=== PATIENT | female | born 1970 | race Caucasian/White ===

== ENCOUNTER → 2016-11-29 | Outpatient (CLI) | payer OTHER ==
[~2016-11-29] MED LIST: BUPRTAB51 PO; BUSP30TA2 PO; LORA-741 PO; MOME50SP5 NAE
--- NOTE | 2016-11-30 12:31 | MAMMOGRAPHY REPORT ---
BILATERAL DIGITAL SCREENING MAMMOGRAM TOMOSYNTHESIS WITH CAD: 11/29/2016 CLINICAL HISTORY: Routine screening. Patient has no complaints. TECHNIQUE: Breast tomosynthesis in addition to standard 2D mammography was performed. Current study was also evaluated with a Computer Aided Detection (CAD) system. COMPARISON: Comparison is made to exams dated: 09/09/2014 mammogram, 08/14/2012 mammogram, 08/12/2011 mammogram, 08/04/2010 ultrasound - [facility], 11/17/2008, and 11/17/2008. BREAST COMPOSITION: The tissue of both breasts is heterogeneously dense, which may obscure small ma sses. FINDINGS: There is evidence of prior reduction mammoplasty. There is stable focal asymmetry in the upper outer anterior left breast. Diffuse stable punctate and round microcalcifications. No new sheets spicious mass, architectural distortion or cluster of microcalcifications is seen. IMPRESSION: ACR BI-RADS CATEGORY 1: NEGATIVE There is no mammographic evidence of malignancy. A 1 year screening mammogram is recommended. The p atient will receive written notification of the results. Approximately 10% of breast cancers are not detected with mammography. A negative mammographic repor t should not delay biopsy if a clinically suggestive mass is present. Vilma Wadsworth M.D. ay/:11/29/2016 17:41:14 [employer] Director: Timothy Bautista M, [facility] letter sent: Normal 1/2 BI-RADS Code: ACR BI-RADS Category 1: Negative
== END | disposition home or self-care (01) ==
LOC: C.MAMM 09:24
PROVIDERS: ATTEND Obstetrics & Gynecology
DX: Z12.31 Encounter for screening mammogram for malignant neoplasm of breast (principal)

== ENCOUNTER → 2016-12-09 | Outpatient (CLI) | payer OTHER | END | disposition home or self-care (01) | LOC: C.PAPS 10:45 | PROVIDERS: ATTEND Obstetrics & Gynecology | DX: Z01.419 Encounter for gynecological examination (general) (routine) without abnormal findings (principal) ==

== ENCOUNTER → 2016-12-09 | Outpatient (CLI) | payer OTHER ==
[2016-12-09 09:36] LABS: BASO % 0.4 %; BASO ABS # 0.03 K/uL (0-0.2); COMPLETE YES; EOS % 1.5 %; HEMATOCRIT 41.7 % (37-47); IG% 0.3 %; LYMPH ABS # 2.26 K/uL (1.2-3.4); MEAN CELL VOLUME 86.3 fL (80-100); MEAN CORPUSCULAR HGB CONC 33.6 g/dl (32-36); MEAN PLATELET VOLUME 9.6 fL (7.4-10.4); MONO % 10.6 %; NEUT % 57.2 %; PLATELET COUNT 416 K/uL (130-400); RED BLOOD COUNT 4.83 M/uL (4.2-5.4); WHITE BLOOD COUNT 7.53 K/uL (4.8-10.8)
[2016-12-09 09:49] LABS: BLOOD UREA NITROGEN 13 mg/dl (7-18); BUN/CREATININE RATIO 13.1 (10-20); CALCIUM 8.9 mg/dl (8.5-10.1); CARBON DIOXIDE 30 mmol/L (21-32); CHLORIDE 106 mmol/L (98-107); GLUCOSE 87 mg/dl (70-99); POTASSIUM 3.8 mmol/L (3.5-5.1); SODIUM 140 mmol/L (136-145)
[2016-12-09 09:59] LABS: C-REACTIVE PROTEIN < 0.29 mg/dl (0-0.29); CHOLESTEROL 245 mg/dl (0-200); CHOLESTEROL/HDL RATIO 4.5; HDL CHOLESTEROL 55 mg/dl; LDL CHOLESTEROL CALCULATED 167 mg/dl; TRIGLYCERIDES 115 mg/dl (0-150); VERY LOW DENSITY LIPOPROT CALC 23 mg/dl
[2016-12-09 11:15] LABS: LYME DISEASE AB IGG NEG (NEG)
[2016-12-09 11:19] LABS: LYME DISEASE AB IGM POS (NEG)
[2016-12-13 13:55] LABS: 18KDIGG BAND NONREACTIVE (NONREACTIVE); 23KDIGG BAND REACTIVE (NONREACTIVE); 23KDIGM BAND REACTIVE (NONREACTIVE); 28KDIGG BAND NONREACTIVE (NONREACTIVE); 30KDIGG BAND REACTIVE (NONREACTIVE); 39KDIGG BAND NONREACTIVE (NONREACTIVE); 39KDIGM BAND REACTIVE (NONREACTIVE); 41KDIGG BAND NONREACTIVE (NONREACTIVE); 41KDIGM BAND REACTIVE (NONREACTIVE); 45KDIGG BAND NONREACTIVE (NONREACTIVE); 58KDIGG BAND NONREACTIVE (NONREACTIVE); 66KDIGG BAND NONREACTIVE (NONREACTIVE); 93KDIGG BAND NONREACTIVE (NONREACTIVE)
== END | disposition home or self-care (01) ==
LOC: C.LAB1850 07:16
PROVIDERS: ATTEND Internal Medicine
DX: E78.5 Hyperlipidemia, unspecified (principal); F32.9 Major depressive disorder, single episode, unspecified; M25.50 Pain in unspecified joint

== ENCOUNTER → 2016-12-20 | Outpatient (CLI) | payer OTHER ==
[2016-12-26 02:28] LABS: ANTI-CENTROMERE AB <1.0 NEG AI (<1.0 NEG); ANTI-SS-A <1.0 NEG AI (<1.0 NEG); ANTI-SS-B <1.0 NEG AI (<1.0 NEG); DNA ds CRITHIDIA NEGATIVE (NEGATIVE); MICROSOMAL AB <1 IU/ML (<9); PARVOVIRUS IgG INDEX 0.3 (<0.9); PARVOVIRUS IgM INDEX 0.3 (<0.9); Sm Antibody <1.0 NEG AI (<1.0 NEG)
[2016-12-27 06:43] LABS: ANA TITER 1:40 TITER (<1:40)
== END | disposition home or self-care (01) ==
LOC: C.LAB1850 16:17
PROVIDERS: ATTEND Internal Medicine Infectious Disease
DX: M13.0 Polyarthritis, unspecified (principal)

== ENCOUNTER → 2017-01-19 | Outpatient (CLI) | payer OTHER ==
--- NOTE | 2017-01-19 16:56 | DIAGNOSTIC IMAGING REPORT ---
RIGHT HIP UNILATERAL 2 VIEWS CLINICAL HISTORY: Arthralgia DANLOS SYNDROME TYPE 3. COMPARISON: None FINDINGS: Alignment of the right hip is anatomic. There is no fracture or suspicious lesion. Joint space is preserved. There is no evidence for avascular necrosis. IMPRESSION: Normal right hip radiographs. Electronically signed by: Anshul Berkowitz M.D. 01/19/2017 4:55 PM Dictated Date/Time: 01/19/2017 4:54 PM
--- NOTE | 2017-01-19 16:57 | DIAGNOSTIC IMAGING REPORT ---
RIGHT HAND MIN 3 VIEWS ROUTINE CLINICAL HISTORY: ARTHRALGIA,NAILA DANLOS SYNDROME TYPE 3 COMPARISON: None FINDINGS: Alignment of the right hand is anatomic. There is no fracture or suspicious lesion. Joint spaces are preserved. No erosions are identified. IMPRESSION: No significant abnormality of the right hand. Electronically signed by: Anshul Berkowitz M.D. 01/19/2017 4:56 PM Dictated Date/Time: 01/19/2017 4:55 PM
--- NOTE | 2017-01-19 16:57 | DIAGNOSTIC IMAGING REPORT ---
LEFT HIP UNILATERAL 2 VIEWS CLINICAL HISTORY: Arthralgia DANLOS SYNDROME TYPE 3 COMPARISON: Left hip radiograph May 13, 2013. FINDINGS: Alignment of left hip is anatomic. There is no fracture or suspicious lesion. Joint space is preserved. There is no evidence for avascular necrosis. IMPRESSION: Unremarkable left hip radiographs. Electronically signed by: Anshul Berkowitz M.D. 01/19/2017 4:55 PM Dictated Date/Time: 01/19/2017 4:55 PM
--- NOTE | 2017-01-19 17:00 | DIAGNOSTIC IMAGING REPORT ---
LEFT HAND MIN 3 VIEWS ROUTINE CLINICAL HISTORY: ARTHRALGIA,NAILA DANLOS SYNDROME TYPE 3 COMPARISON: None FINDINGS: Alignment of the left hand is anatomic. There is no fracture or osseous lesion. Joint spaces are preserved and there are no erosions. IMPRESSION: No significant abnormality of the left hand. Electronically signed by: Anshul Berkowitz M.D. 01/19/2017 4:58 PM Dictated Date/Time: 01/19/2017 4:58 PM
== END | disposition home or self-care (01) ==
LOC: C.RAD1850 16:05
PROVIDERS: ATTEND Internal Medicine Rheumatology
DX: M25.50 Pain in unspecified joint (principal); Q79.6 Ehlers-Danlos syndromes

== ENCOUNTER → 2017-12-16 | Outpatient (CLI) | payer OTHER ==
[2017-12-16 10:44] LABS: HEMATOCRIT 43.2 % (37-47); HEMOGLOBIN 14.7 g/dL (12.0-16.0); MEAN CELL VOLUME 86.4 fL (80-100); MEAN CORPUSCULAR HEMOGLOBIN 29.4 pg (25-34); MEAN PLATELET VOLUME 9.4 fL (7.4-10.4); PLATELET COUNT 424 K/uL (130-400); RED CELL DISTRIBUTION WIDTH CV 13.2 % (11.5-14.5); RED CELL DISTRIBUTION WIDTH SD 41.9 fL (36.4-46.3); WHITE BLOOD COUNT 7.65 K/uL (4.8-10.8)
[2017-12-16 10:55] LABS: ALBUMIN 3.8 gm/dl (3.4-5.0); ALT/SGPT 17 U/L (12-78); BLOOD UREA NITROGEN 13 mg/dl (7-18); CALCIUM 8.9 mg/dl (8.5-10.1); CARBON DIOXIDE 26 mmol/L (21-32); CHOLESTEROL 222 mg/dl (0-200); CREATININE 0.99 mg/dl (0.60-1.20); GLUCOSE 101 mg/dl (70-99); POTASSIUM 4.1 mmol/L (3.5-5.1); SODIUM 140 mmol/L (136-145)
[2017-12-16 11:05] LABS: ALKALINE PHOSPHATASE 69 U/L (45-117); AST/SGOT 12 U/L (15-37); LDL CHOLESTEROL CALCULATED 164 mg/dl; TOTAL PROTEIN 7.1 gm/dl (6.4-8.2)
== END | disposition home or self-care (01) ==
LOC: C.LAB1850 08:17
PROVIDERS: ATTEND Internal Medicine
DX: E78.5 Hyperlipidemia, unspecified (principal); Q79.6 Ehlers-Danlos syndromes; M25.50 Pain in unspecified joint

== ENCOUNTER → 2018-01-11 | Outpatient (CLI) | payer OTHER ==
--- NOTE | 2018-01-12 14:20 | MAMMOGRAPHY REPORT ---
BILATERAL DIGITAL SCREENING MAMMOGRAM TOMOSYNTHESIS WITH CAD: 01/11/2018 CLINICAL HISTORY: Routine screening. Patient has no complaints. TECHNIQUE: Breast tomosynthesis in addition to standard 2D mammography was performed. Current study was also evaluated with a Computer Aided Detection (CAD) system. COMPARISON: Comparison is made to exams dated: 11/29/2016 mammogram, 09/09/2014 mammogram, 08/14/2012 mammogram, 08/12/2011 ultrasound, 08/09/2011 mammogram - [facility], and 11/17/2008. BREAST COMPOSITION: The tissue of both breasts is heterogeneously dense, which may obscure small mas ses. FINDINGS: No suspicious masses, calcifications, or areas of architectural distortion are noted in ei ther breast. There has been no significant interval change compared to prior exams. There are stable changes from bilateral reduction mammoplasty, with linear scar markers denoting scars on bilateral a nterior breasts. Bilateral benign-appearing calcifications are not significantly changed. Left late ral breast asymmetry is stable compared to prior exams. IMPRESSION: ACR BI-RADS CATEGORY 2: BENIGN There is no mammographic evidence of malignancy. A 1 year screening mammogram is recommended. The pa tient will receive written notification of the results. Approximately 10% of breast cancers are not detected with mammography. A negative mammographic report should not delay biopsy if a clinically suggestive mass is present. Ann Mccauley M.D. /:01/11/2018 14:56:49 Construction Supervisor/Carpenter: [facility], [facility] letter sent: Normal 1/2 BI-RADS Code: ACR BI-RADS Category 2: Benign
== END | disposition home or self-care (01) ==
LOC: C.MAMM 12:14
PROVIDERS: ATTEND Obstetrics & Gynecology
DX: Z12.31 Encounter for screening mammogram for malignant neoplasm of breast (principal)

== ENCOUNTER 2018-01-25 19:29 | Emergency (ER) | payer OTHER ==
[~2018-01-25] VITALS: Ht 160 cm; Wt 85.0 kg
[2018-01-25 19:38] VITALS: TEMP 36.7; Ht 160 cm; Wt 85.0 kg
[2018-01-25] MEDS ORDERED: NORCO 5/325MG HOME PACK PO ONE (20:15)
--- NOTE | 2018-01-25 20:20 | EMERGENCY ROOM VISIT NOTE ---
History First contact with patient: 19:54 Chief Complaint: EYE ASSESSMENT Stated Complaint: BLOCKED TEAR DUCK LEFT EYE,EXTREME PAIN History of Present Illness The patient is a 47 year old female who presents to the Emergency Room with complaints of left eye pain 2 days. The patient states that she was seen at her director of academic yesterday due to pain in the corner of the eye and diagnosed with a blocked tear duct. She states that she was placed on Augmentin and has taken 1 dose yesterday and 2 doses today. She has been applying a heating pad as well. She has taken ibuprofen and Tylenol and states that she is still having significant pain. She rates her discomfort an 8/10 and states it is throbbing. She is planning to contact her director of academic tomorrow. She has an appointment next month to have a procedure performed on the tear duct. She reports mild blurred vision from tearing of the eye. She denies any new injuries to the eye. She denies any fevers or swelling. Review of Systems A complete 10 point review of systems was reviewed with the patient with pertinent positives and negatives as per history of present illness. All else were negative. Past Medical/Surgical History Medical Problems: (1) Calculus Of Kidney (2) Cholelithiasis Nos (3) Depressive Disorder Nec (4) Other Psoriasis (5) Tobacco Use Disorder Social History Smoking Status: Current Every Day Smoker Alcohol Use: none Marital Status: Occupation Status: employed Current/Historical Medications Scheduled Bupropion (Wellbutrin-Xl), 300 MG PO HS Buspirone Hcl (Buspirone Hcl), 30 MG PO QPM Scheduled PRN Hydrocodone/Acetaminophen 5MG/325MG (Gregory 5MG/325MG), 1-2 TABLET PO Q4H PRN for Pain Lorazepam (Ativan), 0.5 MG PO HS PRN Mometasone Furoate (Nasonex), 1-2 SPRAY ANNE DAILY PRN Physical Exam Vital Signs Date Time Temp Pulse Resp B/P (MAP) Pulse Ox O2 Delivery O2 Flow Rate FiO2 01/25/18 20:45 82 20 148/93 98 Room Air 01/25/18 19:38 36.7 114 20 144/90 98 Room Air Right Eye Acuity: 20/15 Left Eye Acuity: 20/30 Physical Exam VITALS: Vitals are noted on the nurse's note and reviewed by myself. Vital signs stable. GENERAL: This is a 47-year-old female, in no acute distress, nondiaphoretic, well-developed well-nourished. SKIN: The skin was without rashes. EARS: External auditory canals clear, tympanic membranes [place] without erythema or effusion bilaterally. EYES: Pupils equal round and reactive to light and accommodation. There is constant tearing from the left eye. There is minimal swelling and tenderness to the lacrimal gland. There is no facial swelling. EOMs intact. No conjunctival injection noted. NEURO: Patient was alert and oriented to person place and time. Medical Decision & Procedures Medications Administered Medications (Trade) Dose Ordered Sig/Alex Route Start Time Stop Time Status Last Admin Dose Admin Acetaminophen/ Hydrocodone Bitart (Gregory 5/325mg Home Pack) 1 homepack UD ONCE PO 01/25/18 20:15 01/25/18 20:16 DC 01/25/18 20:32 1 HOMEPACK Medical Decision The patient was evaluated as above. She was seen by her director of academic yesterday for these symptoms and placed on antibiotics. The patient comes here because she is having difficulty controlling her pain. She was given a home pack and very short course of Gregory and advised to contact her director of academic first thing in the morning to discuss follow-up. Conservative measures were discussed. She verbalized understanding of my assessment and treatment plan and was discharged home in good condition. [place] Drug Monitoring Program Search Results: patient reviewed within database, no issues identified Medication Reconcilliation Current Medication List: was personally reviewed by me Blood Pressure Screening Patient's blood pressure: Elevated blood pressure Blood pressure disposition: Elevated BP felt to be situational Impression Primary Impression: Nasolacrimal duct obstruction Departure Information Dispostion Home / Self-Care Condition GOOD Prescriptions Hydrocodone/Acetaminophen 5MG/325MG (Gregory 5MG/325MG) Tab 1-2 TABLET PO Q4H Y for Pain, #8 TAB For Initial Treatment Prov: Wanda Gotti ., KERA 01/25/18 Referrals ,Varun Del Real M.D. (PCP) Timothy Juarez M.D. Patient Instructions My [facility] Additional Instructions Continue the Augmentin as prescribed. You have been prescribed Gregory to be used for pain control. Take 1-2 tablets every 4-6 hours as needed for pain. This is a narcotic medication. You cannot drive or consume alcohol while on this medicine. This medicine should only be used for pain that cannot be controlled with [id number] pain medicines. Contact Dr. Lowry tomorrow to schedule follow-up. Return here for any facial swelling, fevers or other new/concerning symptoms. 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
[2018-01-25 20:45] VITALS: BP 148/93; PULSE 82; O2SAT 98
[2018-01-25] MEDS ORDERED: HYDR-5688 PO (20:45)
== END 2018-01-25 20:49 | disposition home or self-care (01) ==
LOC: C.EDB 19:30 → C.EDD 20:49
DX: H04.552 Acquired stenosis of left nasolacrimal duct (principal); F32.9 Major depressive disorder, single episode, unspecified; F17.200 Nicotine dependence, unspecified, uncomplicated

== ENCOUNTER 2025-07-28 16:14 | Observation (INO) ==
[2025-07-28 17:43] LABS: Hematocrit (blood only) 40.7 % (37.0-47.0); Hemoglobin 13.9 g/dL (12.0-16.0); Immature Granulocytes # (auto) 0.04 K/uL (0.01-0.20); Immature Granulocytes % (auto) 0.6 %; Mean Corpuscular Hemoglobin 30.7 pg (25.0-34.0); Mean Corpuscular Volume 89.8 fL (80.0-100.0); Platelet Count 373 K/uL (130-400); RDW Standard Deviation 41.1 fL (36.4-46.3); Red Blood Count 4.53 M/uL (4.20-5.40); White Blood Count 7.08 K/ul (4.8-10.8)
[2025-07-28 18:02] LABS: Alanine Aminotransferase 22.0 U/L (7-52); Albumin Globulin Ratio 1.8 (0.9-2); Albumin Level 4.9 gm/dl (3.4-5.0); Alkaline Phosphatase 74.0 U/L (34-104); Anion Gap 9.0 (3-11); Bilirubin,Total 0.5 mg/dl (0.2-1.0); Blood Urea Nitrogen 11.0 mg/dl (6-23); Calcium 9.8 mg/dl (8.6-10.3); Carbon Dioxide 25.0 mmol/L (21-32); Chloride 103.0 mmol/L (98-107); Creatinine Clr Calc Pharmacy 76.9 ml/min; Globulin 2.8 gm/dl (2.5-4.0); Glucose 105.0 mg/dl (70-99(Fasting)); Potassium 3.8 mmol/L (3.5-5.1); Sodium 137.0 mmol/L (136-145); Total Protein 7.7 gm/dl (6.0-8.3)
[2025-07-28 18:11] LABS: INR 1.0 (0.9-1.1); Partial Thromboplastin Time 29 Seconds (21-31); Prothrombin Time 10.3 Seconds (9.0-12.0)
[2025-07-28 18:25] LABS: Appearance Urine Clear (Clear); Glucose Urine UA Negative (Negative)
[2025-07-28] MEDS: LABETALOL HCL IV 5 MG/ML 20ML IV STA ×2 (18:47→19:11)
[2025-07-28] MEDS: OPTIRAY 320 125ml IV ONE (18:49)
--- NOTE | 2025-07-28 19:10 | Emergency Department Note ---
Impression & Plan Hypertension, Arm paresthesia, right ED Provider Note ED Provider Note NAME: FIDENCIO FULLER AGE:54 SEX: Female : 1970 ARRIVES VIA: private vehicle INFORMANT: Patient ED PROVIDER(s): Traci Whitney DO CHIEF COMPLAINT: right arm numbness, "feeling funny" HPI: This is a 54-year-old female who presents to the emergency department due to abrupt onset at 1615 this afternoon of right arm numbness and "feeling funny". Patient denies any prior similar episodes. Patient states she does have weird sensations sometimes secondary to her fibromyalgia however this felt different. She is right-hand dominant. No recent change in activity or injury. She denies any joint pains or recent neck pain. She denies any headache or any history of complex migraines. No recent change in medication. Patient states she is a former smoker, does have high cholesterol, and does have high blood pressure. Denies any history of diabetes. She denies any accompanying headache, dizziness, vision changes, nausea, chest pain, or difficulty breathing. PAST MEDICAL HISTORY:See Below PAST SURGICAL HISTORY:See Below FAMILY HISTORY:See Below SOCIAL HISTORY:See Below HOME MEDICATIONS:See Below ALLERGIES:See Below VITALS:See Below PHYSICAL EXAMINATION: GENERAL: alert, well appearing, well nourished, no distress, non-toxic EYE EXAM: normal conjunctiva, PERRL and EOM's grossly intact OROPHARYNX: no exudate, no erythema, lips, buccal mucosa, and tongue normal and mucous membranes are moist NECK: supple, no nuchal rigidity, no adenopathy, non-tender LUNGS: Clear to auscultation. Normal chest wall mechanics, no w/r/r HEART: no murmurs, S1 normal and S2 normal ABDOMEN: abdomen soft, non-tender, normo-active bowel sounds, no masses, no rebound or guarding. BACK: Back is symmetrical on inspection and there is no deformity, no midline tenderness, no CVA tenderness. SKIN: no rashes, petechiae, orbruising UPPER EXTREMITIES: upper extremities are grossly normal. FROM, nml pulses b/l. Equal sensory testing bilaterally. Equal heavy cleaner strength bilaterally. No pain with palpation along the right upper extremity, no joint effusions. LOWER EXTREMITIES: No pitting edema. FROM, nml pulses b/l. NEURO EXAM: Normal sensorium, cranial nerves II-XII grossly intact, normal speech, no facial droop,nogross weakness of arms, no gross weakness of legs. Gross sensation intact. No ataxia. Vital Signs: reviewed and remarkable Differential Diagnosis: ischemic Stroke, hemorrhagic stroke, bells palsy, mass, neoplasm, migraine headache, seizure, subarachnoid hemorrhage, TIA, transient global amnesia, medication ADR, as well as others were considered MEDICAL DECISION MAKING: This is a 54-year-old female presents the emergency department due to concern for right arm paresthesias and "feeling funny". She was noted to be hypertensive on arrival however over vital signs were stable. Labs drawn and sent, IV established, EKG performed and interpreted at bedside, and patient placed on telemetry. After discussion and evaluation at bedside, patient made a stroke alert and sent for repeat CT/CTA. Did discuss case with on-call Suzie neurology who did evaluate the patient for stroke. Patient was given 2 doses of IV labetalol to help with blood pressure control. They recommended additional stroke evaluation and admission but suspect her symptoms are more likely due to hypertensive urgency at this time. Case discussed with the hospitalist team for additional evaluation and management. Consultation(s): 1855: Discussed with Dr. Orourke, [facility] [place] teleneurology. 1901: Discussed with Dr. Song, [place] hospitalist team, for additional evaluation and mgmt. 1915: Discussed with rad - negative CT/CTA. ER Treatment Provided: See below Diagnostics Interpreted By Me: -ECG: Normal sinus 84, normal axis, normal intervals, no acute ST/T wave changes -Cardiac Monitoring: An order was placed for continuous cardiac monitoring. The monitor shows a rate of 80 with normal sinus rhythm. -Laboratory studies: As stated above and show below. -Imaging studies: ct head: no ich Triage Nursing Note Reviewed Prior/Outside Records Reviewed Critical Care: Critical care of 39 min performed to assess and manage high likelihood of life-threatening hypertension, involving labs and imaging performed with assessment to evaluate stroke like symptoms and hypertension diagnosis with frequent reassessment. This time includes bedside time, treatment discussions with patient/family/consultants, documentation time and excludes procedure time. 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 Chronic maxillary sinusitis Arthritis Chronic GERD Vitamin B12 deficiency Palpitations (Acute) Encounter for pre-operative examination Irritable bowel syndrome with predominant constipation (Chronic) Fibromyalgia Psoriasis Abnormal liver CT Abdominal pain Hernia of abdominal wall Anxiety disorder (Acute) Depression (Acute) Rima-Danlos syndrome type III (Acute) Hip pain, bilateral (Acute) Hyperlipidemia (Acute) Leiomyoma of uterus (Acute) Postcoital bleeding Medical History Hyperlipidemia Rima-Danlos syndrome type III Depression Anxiety disorder Psoriasis Fibromyalgia IBS (irritable bowel syndrome) Arthritis Chronic maxillary sinusitis History of dysphagia Palpitation Chronic GERD Nausea and vomiting after administration of anesthetic agent Cardiovascular event risk Abdominal pain Medical marijuana use History of kidney stones Osteoarthritis Surgical History Hx of oral surgery (07/30/24) History of esophagogastroduodenoscopy (EGD) Hx of oral surgery Hx of colonoscopy History of surgery on left wrist History of wisdom tooth extraction History of biopsy History of right breast biopsy History of colposcopy with cervical biopsy History of bilateral breast reduction surgery History of tubal ligation History of endometrial ablation History of cholecystectomy History of cryosurgery Family History Aunt Diabetes Breast cancer Grandmother (Paternal) Diabetes Breast cancer Mother Diabetes Diverticulitis Grandmother (Maternal) Diabetes Father Diverticulitis Cardiac pacemaker Other Colitis Depression Dyslipidemia Hypertension Kidney disease Multiple gestation No family history of adverse response to anesthesia Thyroid disease Denies family history of Ovarian cancer Crohn's disease Colorectal cancer Inflammatory bowel disease Social History Smoking Status: Current every day smoker Tobacco Type: E-cigarettes / Vaping packs per day: 1; Cigarettes Per Day: VAPES daily (advised); Second Hand Exposure: No; Do You Dip or Chew Tobacco: No; Tobacco Cessation Education Requested by Patient: No Hx Alcohol Use: Yes Alcohol type: hard liquor Alcohol Intake Frequency: 4 or More x per/Week Alcohol Intake Frequency Comment: daily Hx Substance Use: Yes Last Used Substance: Hours (ago) Last Used Substance Other:: 11/10/24 Preferred Language: Bulgarian Communication Ability: Effective Visual Impairment: No Limitations Hearing Ability: Normal Risk Tech Required: No Beliefs That Will Affect Care: None marital status: Current Living Situation: Spouse and Family Current Living Situation Comment: Lives with partner and partner's daughter current occupational status: employed 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 Other Information That Helps Us Care for You: No Feels Safe at Home: Yes Safety Concerns: Feels Safe At This Time Childhood Exposure to Second-Hand Smoke: Yes Diet: regular Dental Care, Regularly: Yes Physical Activity Frequency: Does not Exercise Seatbelt Use: always Sunscreen Use: Yes Assistive Devices: Glasses Allergies Allergies Allergy/AdvReac Type Severity Reaction Status Date / Time No Known Allergies Allergy Verified 04/03/25 15:37 Home Meds Home Medications Medication Instructions Recorded Confirmed Medical Thc 1 inh inhalation UD PRN Anxiety 06/20/22 07/28/25 red yeast rice 600 mg capsule 600 mg PO DAILY 07/18/24 07/28/25 Previous Rx's Medication Instructions Recorded mometasone 50 mcg/actuation nasal 1 spray intranasal DAILY PRN 05/10/23 spray Allergy Symptoms #17 grams mecobalamin (vitamin B12) 1,000 1,000 mcg PO DAILY #30 tabs 02/29/24 mcg chewable tablet clobetasol 0.05 % topical ointment 1 applic topical DAILY PRN 06/21/24 Psoriasis #30 grams solifenacin 5 mg tablet (Vesicare) 5 mg PO QAM #90 tabs 08/19/24 pantoprazole 40 mg tablet,delayed 40 mg PO DAILY #90 tabs 09/25/24 release (Protonix) bupropion HCl 300 mg 24 hr tablet, 300 mg PO QAM #90 tabs 10/16/24 extended release meclizine 25 mg tablet 25 mg PO BID PRN dizziness #20 tabs 02/13/25 ondansetron HCl 4 mg tablet 4 mg PO Q8H PRN nausea and 02/13/25 vomiting #30 tabs valacyclovir 1 gram tablet See Rx Instructions .Route 05/23/25 .COMPLEX PRN cold sores #30 tabs Results & Data (ED) Vital Signs Vital Signs - 24 hr 07/28/25 16:24 07/28/25 18:15 07/28/25 18:15 Temperature 36.8 C Temperature Source Skin Pulse Rate 111 H Pulse Rate [Right Finger] 88 Pulse Rate from SpO2 Sensor Respiratory Rate 20 18 Respiratory Depth Blood Pressure 187/119 H 152/85 H Blood Pressure [Right Arm] 184/108 H Blood Pressure Mean 141 101 Blood Pressure Mean [Right Arm] 133 Pulse Oximetry 98 98 Oxygen Delivery Method Room Air Sepsis Recent Fever Within 48 Hours No Sepsis New/Unexplained Change in Mental Status N/A Sepsis Action Taken by Nursing No Action Required 07/28/25 18:21 07/28/25 18:23 07/28/25 18:30 Temperature Temperature Source Pulse Rate 86 84 92 H Pulse Rate [Right Finger] Pulse Rate from SpO2 Sensor 86 91 H Respiratory Rate 18 15 Respiratory Depth Blood Pressure Blood Pressure [Right Arm] Blood Pressure Mean Blood Pressure Mean [Right Arm] Pulse Oximetry 97 98 Oxygen Delivery Method Sepsis Recent Fever Within 48 Hours Sepsis New/Unexplained Change in Mental Status Sepsis Action Taken by Nursing 07/28/25 18:31 07/28/25 18:31 07/28/25 18:31 Temperature Temperature Source Pulse Rate Pulse Rate [Right Finger] Pulse Rate from SpO2 Sensor Respiratory Rate Respiratory Depth Blood Pressure 184/108 H 184/108 H 184/108 H Blood Pressure [Right Arm] Blood Pressure Mean 116 116 116 Blood Pressure Mean [Right Arm] Pulse Oximetry Oxygen Delivery Method Sepsis Recent Fever Within 48 Hours Sepsis New/Unexplained Change in Mental Status Sepsis Action Taken by Nursing 07/28/25 18:31 07/28/25 18:31 07/28/25 18:41 Temperature Temperature Source Pulse Rate Pulse Rate [Right Finger] 82 Pulse Rate from SpO2 Sensor Respiratory Rate 18 Respiratory Depth Normal Blood Pressure 184/108 H 184/108 H Blood Pressure [Right Arm] 170/84 H Blood Pressure Mean 116 116 Blood Pressure Mean [Right Arm] 112 Pulse Oximetry 96 Oxygen Delivery Method Room Air Sepsis Recent Fever Within 48 Hours Sepsis New/Unexplained Change in Mental Status Sepsis Action Taken by Nursing 07/28/25 18:42 07/28/25 18:45 07/28/25 18:45 Temperature Temperature Source Pulse Rate 83 Pulse Rate [Right Finger] Pulse Rate from SpO2 Sensor 83 Respiratory Rate 21 Respiratory Depth Blood Pressure 199/99 H 199/99 H Blood Pressure [Right Arm] Blood Pressure Mean 140 140 Blood Pressure Mean [Right Arm] Pulse Oximetry 97 Oxygen Delivery Method Sepsis Recent Fever Within 48 Hours Sepsis New/Unexplained Change in Mental Status Sepsis Action Taken by Nursing 07/28/25 18:45 07/28/25 18:45 07/28/25 18:45 Temperature Temperature Source Pulse Rate Pulse Rate [Right Finger] Pulse Rate from SpO2 Sensor Respiratory Rate Respiratory Depth Blood Pressure 199/99 H 199/99 H 199/99 H Blood Pressure [Right Arm] Blood Pressure Mean 140 140 140 Blood Pressure Mean [Right Arm] Pulse Oximetry Oxygen Delivery Method Sepsis Recent Fever Within 48 Hours Sepsis New/Unexplained Change in Mental Status Sepsis Action Taken by Nursing 07/28/25 18:45 07/28/25 18:47 07/28/25 18:58 Temperature Temperature Source Pulse Rate 85 89 Pulse Rate [Right Finger] Pulse Rate from SpO2 Sensor 84 Respiratory Rate 15 Respiratory Depth Blood Pressure 199/99 H 160/89 H Blood Pressure [Right Arm] Blood Pressure Mean 114 Blood Pressure Mean [Right Arm] Pulse Oximetry 97 Oxygen Delivery Method Sepsis Recent Fever Within 48 Hours Sepsis New/Unexplained Change in Mental Status Sepsis Action Taken by Nursing 07/28/25 18:58 07/28/25 18:58 07/28/25 19:00 Temperature Temperature Source Pulse Rate 80 Pulse Rate [Right Finger] Pulse Rate from SpO2 Sensor 79 Respiratory Rate 17 Respiratory Depth Blood Pressure 160/89 H 160/89 H Blood Pressure [Right Arm] Blood Pressure Mean 114 114 Blood Pressure Mean [Right Arm] Pulse Oximetry 97 Oxygen Delivery Method Sepsis Recent Fever Within 48 Hours Sepsis New/Unexplained Change in Mental Status Sepsis Action Taken by Nursing 07/28/25 19:00 07/28/25 19:00 07/28/25 19:00 Temperature Temperature Source Pulse Rate Pulse Rate [Right Finger] Pulse Rate from SpO2 Sensor Respiratory Rate Respiratory Depth Blood Pressure 170/84 H 170/84 H 170/84 H Blood Pressure [Right Arm] Blood Pressure Mean 97 97 97 Blood Pressure Mean [Right Arm] Pulse Oximetry Oxygen Delivery Method Sepsis Recent Fever Within 48 Hours Sepsis New/Unexplained Change in Mental Status Sepsis Action Taken by Nursing 07/28/25 19:00 07/28/25 19:00 07/28/25 19:00 Temperature Temperature Source Pulse Rate Pulse Rate [Right Finger] Pulse Rate from SpO2 Sensor Respiratory Rate Respiratory Depth Blood Pressure 170/84 H 170/84 H 170/84 H Blood Pressure [Right Arm] Blood Pressure Mean 97 97 97 Blood Pressure Mean [Right Arm] Pulse Oximetry Oxygen Delivery Method Sepsis Recent Fever Within 48 Hours Sepsis New/Unexplained Change in Mental Status Sepsis Action Taken by Nursing 07/28/25 19:00 07/28/25 19:00 07/28/25 19:11 Temperature Temperature Source Pulse Rate 79 Pulse Rate [Right Finger] Pulse Rate from SpO2 Sensor Respiratory Rate Respiratory Depth Blood Pressure 170/84 H 170/84 H 170/84 H Blood Pressure [Right Arm] Blood Pressure Mean 97 97 Blood Pressure Mean [Right Arm] Pulse Oximetry Oxygen Delivery Method Sepsis Recent Fever Within 48 Hours Sepsis New/Unexplained Change in Mental Status Sepsis Action Taken by Nursing 07/28/25 19:12 07/28/25 19:15 07/28/25 19:15 Temperature Temperature Source Pulse Rate 85 81 Pulse Rate [Right Finger] Pulse Rate from SpO2 Sensor 85 79 Respiratory Rate 14 18 Respiratory Depth Blood Pressure 200/96 H Blood Pressure [Right Arm] Blood Pressure Mean 124 Blood Pressure Mean [Right Arm] Pulse Oximetry 98 97 Oxygen Delivery Method Sepsis Recent Fever Within 48 Hours Sepsis New/Unexplained Change in Mental Status Sepsis Action Taken by Nursing 07/28/25 19:15 07/28/25 19:15 07/28/25 19:15 Temperature Temperature Source Pulse Rate Pulse Rate [Right Finger] Pulse Rate from SpO2 Sensor Respiratory Rate Respiratory Depth Blood Pressure 200/96 H 200/96 H 200/96 H Blood Pressure [Right Arm] Blood Pressure Mean 124 124 124 Blood Pressure Mean [Right Arm] Pulse Oximetry Oxygen Delivery Method Sepsis Recent Fever Within 48 Hours Sepsis New/Unexplained Change in Mental Status Sepsis Action Taken by Nursing 07/28/25 19:15 07/28/25 19:21 07/28/25 19:30 Temperature Temperature Source Pulse Rate 79 75 Pulse Rate [Right Finger] Pulse Rate from SpO2 Sensor 79 Respiratory Rate 26 H 21 Respiratory Depth Blood Pressure 200/96 H Blood Pressure [Right Arm] Blood Pressure Mean 124 Blood Pressure Mean [Right Arm] Pulse Oximetry 95 Oxygen Delivery Method Sepsis Recent Fever Within 48 Hours Sepsis New/Unexplained Change in Mental Status Sepsis Action Taken by Nursing 07/28/25 19:30 07/28/25 19:30 07/28/25 19:30 Temperature Temperature Source Pulse Rate Pulse Rate [Right Finger] Pulse Rate from SpO2 Sensor Respiratory Rate Respiratory Depth Blood Pressure 179/93 H 179/93 H 179/93 H Blood Pressure [Right Arm] Blood Pressure Mean 119 119 119 Blood Pressure Mean [Right Arm] Pulse Oximetry Oxygen Delivery Method Sepsis Recent Fever Within 48 Hours Sepsis New/Unexplained Change in Mental Status Sepsis Action Taken by Nursing 07/28/25 19:30 07/28/25 19:30 Temperature Temperature Source Pulse Rate Pulse Rate [Right Finger] Pulse Rate from SpO2 Sensor Respiratory Rate Respiratory Depth Blood Pressure 179/93 H 179/93 H Blood Pressure [Right Arm] Blood Pressure Mean 119 119 Blood Pressure Mean [Right Arm] Pulse Oximetry Oxygen Delivery Method Sepsis Recent Fever Within 48 Hours Sepsis New/Unexplained Change in Mental Status Sepsis Action Taken by Nursing Laboratory Data 07/28/25 17:09 07/28/25 17:09 Lab Results 07/28/25 07/28/25 Range/Units 17:09 19:02 WBC 7.08 (4.8-10.8) K/ul RBC 4.53 (4.20-5.40) M/uL Hgb 13.9 (12.0-16.0) g/dL Hct 40.7 (37.0-47.0) % MCV 89.8 (80.0-100.0) fL MCH 30.7 (25.0-34.0) pg MCHC 34.2 (32.0-36.0) g/dL RDW Std Deviation 41.1 (36.4-46.3) fL RDW Coeff of [place] 12.5 (11.5-14.5) % Plt Count 373 (130-400) K/uL MPV 9.0 L (9.4-12.4) fL Immature Gran % (Auto) 0.6 % Neut % (Auto) 63.0 % Lymph % (Auto) 23.0 % [place] % (Auto) 11.6 % Eos % (Auto) 1.4 % Baso % (Auto) 0.4 % Neut # (Auto) 4.46 (1.40-6.50) K/uL Lymph # (Auto) 1.63 (1.20-3.40) K/uL [place] # (Auto) 0.82 H (0.11-0.59) K/uL Eos # (Auto) 0.10 (0.00-0.50) K/uL Baso # (Auto) 0.03 (0.00-0.20) K/uL Immature Gran # (Auto) 0.04 (0.01-0.20) K/uL PT 10.3 (9.0-12.0) Seconds INR 1.0 (0.9-1.1) APTT 29 (21-31) Seconds PTT Ratio 1.1 Sodium 137 (136-145) mmol/L Potassium 3.8 (3.5-5.1) mmol/L Chloride 103 (98-107) mmol/L Carbon Dioxide 25 (21-32) mmol/L Anion Gap 9 (3-11) BUN 11 (6-23) mg/dl Creatinine 0.86 (0.6-1.2) mg/dl Est Cr Clr Drug Dosing 76.9 ml/min eGFR 81.23 BUN/Creatinine Ratio 12.8 (10-20) Glucose 105 H (70-99(Fasting)) mg/dl POC Glucose 108 H (70-99) mg/dl Estimat Average Glucose 103 mg/dl Hemoglobin A1c 5.2 (4.5-5.6) % Calcium 9.8 (8.6-10.3) mg/dl Magnesium 2.1 (1.7-2.4) mg/dl Total Bilirubin 0.5 (0.2-1.0) mg/dl AST 20 (13-39) U/L ALT 22 (7-52) U/L Alkaline Phosphatase 74 (34-104) U/L Troponin I High Sens 3.8 (0-14) pg/ml Total Protein 7.7 (6.0-8.3) gm/dl Albumin 4.9 (3.4-5.0) gm/dl Globulin 2.8 (2.5-4.0) gm/dl Albumin/Globulin Ratio 1.8 (0.9-2) Triglycerides 99 (0-150) mg/dl Cholesterol 278 H (0-200) mg/dl LDL Cholesterol, Calc 171 mg/dl VLDL Cholesterol, Calc 20 (0-30) mg/dl HDL Cholesterol 87 mg/dl Cholesterol/HDL Ratio 3.2 (0-5) TSH 1.768 (0.300-4.500) uIu/ml Administered Medications Lactated Ringer's (Lr) 1,000 mls @ 125 mls/hr IV .Q8H YASMANY Stop: 07/29/25 04:14 Last Admin: 07/28/25 20:21 Dose: 125 mls/hr Documented By: JT Discontinued Medications Sodium Chloride (Nss) 1,000 mls @ 125 mls/hr IV .Q8H [place]ASMANY Stop: 07/31/25 18:44 Last Infusion: 07/28/25 20:06 Dose: Infused Documented By: Infusion: 07/28/25 19:57 Dose: 0 mls/hr Documented By: Admin: 07/28/25 19:11 Dose: 125 mls/hr Documented By: dede Ioversol (Optiray 320 125ml) 115 ml IV ONCE ONE Stop: 07/28/25 18:50 Last Admin: 07/28/25 18:49 Dose: 115 ml Documented By: KEANU Labetalol HCl (Labetalol Hcl Iv 5 Mg/Ml 20ml) 5 mg IV NOW STA Stop: 07/28/25 18:41 Last Admin: 07/28/25 18:47 Dose: 5 mg Documented By: MARIA LUZ Labetalol HCl (Labetalol Hcl Iv 5 Mg/Ml 20ml) 5 mg IV NOW STA Stop: 07/28/25 19:01 Last Admin: 07/28/25 19:11 Dose: 5 mg Documented By: dede Imaging Data Radiologist's Impression: Head CT 07/28/25 18:41 CT HEAD: HISTORY: Weakness TECHNIQUE: Noncontrast CT examination of the head is performed. Coronal and sagittal reformats were created. COMPARISON: None "back FINDINGS: There is no evidence of intracranial hemorrhage, focal mass effect or midline shift. No fluid collection is identified. The ventricular system is midline and symmetric. No evidence of acute major vascular territory infarction. No calvarial fracture is identified. The paranasal sinuses and mastoids are well aerated. IMPRESSION: No acute intracranial process identified. ASPECT SCORE 10/10 Notification to clinician of alert: [facility] ED was notified about above findings by phone on July 28, 2025 at 7:15 PM by Jonn Bay MD. Electronically signed by Jonn Bay 07-28-2025 7:35 PM Head CTA 07/28/25 18:41 HISTORY: Stroke TECHNIQUE: CT angiography of the head and the neck was performed. Coronal and sagittal reformats were created. IV CONTRAST: 100 mL of OMNIPAQUE 300 COMPARISON: FINDINGS: CTA HEAD: Stenotic/occlusive disease: None Aneurysm: None Vascular malformation: None CTA NECK: Right carotid: No hemodynamically significant stenosis. Left carotid: No hemodynamically significant stenosis. Vertebrobasilar system: No hemodynamically significant stenosis. Aortic arch and subclavian arteries: No hemodynamically significant stenosis. Nonvascular structures: Unremarkable. Stenosis ranges are derived using NASCET criteria. IMPRESSION: No large vessel occlusion or hemodynamically significant stenosis. Notification to clinician of alert: [facility] was notified about above findings by phone on July 28, 2025 at 7:15 PM by Jonn Bay MD. Electronically signed by Jonn Bay 07-28-2025 7:35 PM Neck CTA 07/28/25 18:41 HISTORY: Stroke TECHNIQUE: CT angiography of the head and the neck was performed. Coronal and sagittal reformats were created. IV CONTRAST: 100 mL of OMNIPAQUE 300 COMPARISON: FINDINGS: CTA HEAD: Stenotic/occlusive disease: None Aneurysm: None Vascular malformation: None CTA NECK: Right carotid: No hemodynamically significant stenosis. Left carotid: No hemodynamically significant stenosis. Vertebrobasilar system: No hemodynamically significant stenosis. Aortic arch and subclavian arteries: No hemodynamically significant stenosis. Nonvascular structures: Unremarkable. Stenosis ranges are derived using NASCET criteria. IMPRESSION: No large vessel occlusion or hemodynamically significant stenosis. Notification to clinician of alert: [facility] was notified about above findings by phone on July 28, 2025 at 7:15 PM by Jonn Bay MD. Electronically signed by Jonn Bay 07-28-2025 7:35 PM Brain MRI 07/28/25 19:21 Exam(s): MRI HEAD Without Contrast EXAM: MR Head Without Intravenous Contrast CLINICAL HISTORY: Reason for exam: Right arm numbness, stroke alert. TECHNIQUE: Magnetic resonance images of the head/brain without intravenous contrast in multiple planes. COMPARISON: Head CT from 07/28/2025 at 6:47 p.m. FINDINGS: Brain: 6 mm ill-defined area of T2 hyperintensity in the left frontal lobe deep white matter is nonspecific. Mild cerebral atrophy and trace amount of periventricular white matter T2 hyperintensity consistent with early chronic small vessel disease. No areas of diffusion restriction are seen to indicate acute stroke. No intracranial hemorrhage is identified. Ventricles: Unremarkable. No ventriculomegaly. Bones/joints: Unremarkable. No acute fracture. Sinuses: Unremarkable as visualized. No acute sinusitis. Mastoid air cells: Unremarkable as visualized. No mastoid effusion. Orbits: Unremarkable as visualized. IMPRESSION: 1. 6 mm ill-defined area of T2 hyperintensity in the left frontal lobe deep white matter is nonspecific. Differential considerations include chronic small vessel disease versus demyelinating lesion or old small vessel infarct. 2. Mild cerebral atrophy and trace amount of periventricular white matter T2 hyperintensity consistent with early chronic small vessel disease. No areas of diffusion restriction are seen to indicate acute stroke. Electronically signed by: Jah Solis MD 07/28/25 22:22 PM Discharge Plan Visit Data Chief Complaint: Neuro Symptoms/Deficit Stated Complaint: RT ARM NUMB PAST 0.5 HR, NO HX, HAS FIBROMYALGIA ED Provider: Traci Whitney Discharge Problem: Hypertension, Arm paresthesia, right Patient Disposition: Admitted As Inpatient Condition: Fair Discharge Instructions Interventions: ED Discharge Assessment Last Done: 07/28/25 22:34
[2025-07-28] MEDS: SODIUM CHLORIDE 0.9% 1,000 ML IV SCH (19:11)
[2025-07-28 19:26] LABS: Thyroid Stimulating Hormone 1.768 uIu/ml (0.300-4.500)
--- NOTE | 2025-07-28 19:35 | CT Scan Report ---
CT HEAD: HISTORY: Weakness TECHNIQUE: Noncontrast CT examination of the head is performed. Coronal and sagittal reformats were created. COMPARISON: None "back FINDINGS: There is no evidence of intracranial hemorrhage, focal mass effect or midline shift. No fluid collection is identified. The ventricular system is midline and symmetric. No evidence of acute major vascular territory infarction. No calvarial fracture is identified. The paranasal sinuses and mastoids are well aerated. IMPRESSION: No acute intracranial process identified. ASPECT SCORE 10/10 Notification to clinician of alert: [facility] ED was notified about above findings by phone on July 28, 2025 at 7:15 PM by Jonn Bay MD. Electronically signed by Jonn Bay 07-28-2025 7:35 PM
--- NOTE | 2025-07-28 19:36 | CT Scan Report ---
HISTORY: Stroke TECHNIQUE: CT angiography of the head and the neck was performed. Coronal and sagittal reformats were created. IV CONTRAST: 100 mL of OMNIPAQUE 300 COMPARISON: FINDINGS: CTA HEAD: Stenotic/occlusive disease: None Aneurysm: None Vascular malformation: None CTA NECK: Right carotid: No hemodynamically significant stenosis. Left carotid: No hemodynamically significant stenosis. Vertebrobasilar system: No hemodynamically significant stenosis. Aortic arch and subclavian arteries: No hemodynamically significant stenosis. Nonvascular structures: Unremarkable. Stenosis ranges are derived using NASCET criteria. IMPRESSION: No large vessel occlusion or hemodynamically significant stenosis. Notification to clinician of alert: [facility] ED was notified about above findings by phone on July 28, 2025 at 7:15 PM by Jonn Bay MD. Electronically signed by Jonn Bay 07-28-2025 7:35 PM
[2025-07-28 19:52] LABS: Hemoglobin A1C 5.2 % (4.5-5.6)
[2025-07-28 19:57] LABS: Magnesium 2.1 mg/dl (1.7-2.4)
[2025-07-28 20:03] LABS: Cholesterol 278.0 mg/dl (0-200); HDL Cholesterol 87.0 mg/dl; Triglycerides 99.0 mg/dl (0-150)
--- NOTE | 2025-07-28 20:06 | History & Physical Report ---
Date of Service July 28, 2025 Assessment & Plan (1) Arm paresthesia, right: (2) Hypertension: (3) Anxiety disorder: (4) Fibromyalgia: Plan The patient is a 55-year-old female with a past medical history including hypertension, sinusitis, GERD, B12 deficiency, IBS-C, fibromyalgia, psoriasis, hyperlipidemia, uterine leiomyoma, and anxiety disorder. She reports at about 430 this afternoon she developed some right hand to elbow numbness, without associated weakness, and became concerned and presented to the ED for assessment. She was evaluated as a stroke alert, which telestroke neurology reporting that she started that she should be admitted to the hospital with stroke alert follow-up. CT scan of head, CTA head and neck were all negative. CBC with differential chemistry profile were essentially normal. Urinalysis was negative. From the ED patient received normal saline 125 ml, and labetalol 5 mg IV x 2. She was then referred for evaluation for admission to [facility]. Right arm paresthesias- Acute onset occurred 430 this afternoon, without affecting muscle strength. No change in physical activities that precipitated first She reports that she was holding her phone at the time of which she almost dropped it. CT scan head is negative CTA head and neck negative Underwent telestroke neurology evaluation, TNK was not recommended, the patient was recommended for evaluation for admission, including MRI. The patient will be admitted to telemetry for serial cardiac enzymes, serial EKG's, cardiac rhythm monitoring and a 2-D echocardiogram with Dopplers. MRI brain without contrast Advised the ED to give aspirin 324 mg now, and will start aspirin 81 mg every morning Admit to monitored bed with stroke without thrombolytic order set. Consult PT/OT/speech Check hemoglobin A1c and fasting lipid profile Hyperlipidemia- Presently taking red yeast rice, active agent lovastatin. Check a fasting lipid panel Review of records to see previous intolerances Fibromyalgia/anxiety- Continue usual medications of bupropion Do not think symptoms today are associated GERD- Continue pantoprazole Bladder spasm- Continue solifenacin B12 deficiency- Continue Mecobalamin History of Present Illness Primary Care Provider: Varun Vicente MD The patient is a 55-year-old female with a past medical history including hypertension, sinusitis, GERD, B12 deficiency, IBS-C, fibromyalgia, psoriasis, hyperlipidemia, uterine leiomyoma, and anxiety disorder. She reports at about 430 this afternoon she developed some right hand to elbow numbness, without associated weakness, and became concerned and presented to the ED for assessment. She was evaluated as a stroke alert, which telestroke neurology reporting that she started that she should be admitted to the hospital with stroke alert follow-up. CT scan of head, CTA head and neck were all negative. CBC with differential chemistry profile were essentially normal. Urinalysis was negative. From the ED patient received normal saline 125 ml, and labetalol 5 mg IV x 2. She was then referred for evaluation for admission to [facility]. Allergies Allergy/AdvReac Type Severity Reaction Status Date / Time No Known Allergies Allergy Verified 04/03/25 15:37 Home Medications Medication Instructions Recorded Confirmed Type Medical Thc 1 inh inhalation UD PRN Anxiety 06/20/22 07/28/25 History mometasone 50 mcg/actuation nasal 1 spray intranasal DAILY PRN 05/10/23 07/28/25 Rx spray Allergy Symptoms #17 grams mecobalamin (vitamin B12) 1,000 1,000 mcg PO DAILY #30 tabs 02/29/24 07/28/25 Rx mcg chewable tablet clobetasol 0.05 % topical ointment 1 applic topical DAILY PRN 06/21/24 07/28/25 Rx Psoriasis #30 grams red yeast rice 600 mg capsule 600 mg PO DAILY 07/18/24 07/28/25 History solifenacin 5 mg tablet (Vesicare) 5 mg PO QAM #90 tabs 08/19/24 07/28/25 Rx pantoprazole 40 mg tablet,delayed 40 mg PO DAILY #90 tabs 09/25/24 07/28/25 Rx release (Protonix) bupropion HCl 300 mg 24 hr tablet, 300 mg PO QAM #90 tabs 10/16/24 07/28/25 Rx extended release meclizine 25 mg tablet 25 mg PO BID PRN dizziness #20 tabs 02/13/25 07/28/25 Rx ondansetron HCl 4 mg tablet 4 mg PO Q8H PRN nausea and 02/13/25 07/28/25 Rx vomiting #30 tabs valacyclovir 1 gram tablet See Rx Instructions .Route 05/23/25 07/28/25 Rx .COMPLEX PRN cold sores #30 tabs Past Med/Surg History Problem List (Updated 07/28/25 @ 19:09 by Traci Whitney, ) Arm paresthesia, right (Acute) Hypertension (Acute) Maxillary sinus cyst Subperiosteal abscess of jaw Fistula of maxillary sinus Chronic maxillary sinusitis Arthritis Chronic GERD Vitamin B12 deficiency Palpitations (Acute) Encounter for pre-operative examination Irritable bowel syndrome with predominant constipation (Chronic) Fibromyalgia Psoriasis Abnormal liver CT Abdominal pain Hernia of abdominal wall Anxiety disorder (Acute) Depression (Acute) Rima-Danlos syndrome type III (Acute) Hip pain, bilateral (Acute) Hyperlipidemia (Acute) Leiomyoma of uterus (Acute) Postcoital bleeding Medical History Hyperlipidemia Rima-Danlos syndrome type III Depression Anxiety disorder Psoriasis Fibromyalgia IBS (irritable bowel syndrome) Arthritis Chronic maxillary sinusitis History of dysphagia Palpitation Chronic GERD Nausea and vomiting after administration of anesthetic agent Cardiovascular event risk Abdominal pain Medical marijuana use History of kidney stones Osteoarthritis Surgical History Hx of oral surgery (07/30/24) History of esophagogastroduodenoscopy (EGD) Hx of oral surgery Hx of colonoscopy History of surgery on left wrist History of wisdom tooth extraction History of biopsy History of right breast biopsy History of colposcopy with cervical biopsy History of bilateral breast reduction surgery History of tubal ligation History of endometrial ablation History of cholecystectomy History of cryosurgery Family History Aunt Diabetes Breast cancer Grandmother (Paternal) Diabetes Breast cancer Mother Diabetes Diverticulitis Grandmother (Maternal) Diabetes Father Diverticulitis Cardiac pacemaker Other Colitis Depression Dyslipidemia Hypertension Kidney disease Multiple gestation No family history of adverse response to anesthesia Thyroid disease Denies family history of Ovarian cancer Crohn's disease Colorectal cancer Inflammatory bowel disease Social History Smoking Status: Current every day smoker Tobacco Type: E-cigarettes / Vaping packs per day: 1; Cigarettes Per Day: VAPES daily (advised); Second Hand Exposure: Yes (hx growing up); Do You Dip or Chew Tobacco: No; Hx Alcohol Use: Yes (~2-3 daily) Alcohol type: beer Alcohol Intake Frequency: 4 or More x per/Week Alcohol Intake Frequency Comment: daily Hx Substance Use: Yes (medical card- advised) Last Used Substance Other:: 07/21/24 Preferred Language: Hungarian Communication Ability: Effective Visual Impairment: No Limitations Hearing Ability: Normal Stripper Black And White Required: No Beliefs That Will Affect Care: None marital status: Current Living Situation: Significant Other Current Living Situation Comment: Lives with partner and partner's daughter current occupational status: employed 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 Feels Safe at Home: Yes Childhood Exposure to Second-Hand Smoke: Yes Diet: regular Dental Care, Regularly: Yes Physical Activity Frequency: Does not Exercise Seatbelt Use: always Sunscreen Use: Yes Assistive Devices: Glasses Review of Systems Review of Systems: The patient denies chest pain, palpitations, shortness of breath, dyspnea on exertion, cough, lower extremity swelling, sore throat, fevers, chills, sweats, weight change, fatigue, nausea, vomiting, diarrhea , constipation, abdominal pain, pelvic pain, blood in urine or stool, dysuria, urinary frequency or urgency, lightheadedness, dizziness, headache, memory loss, loss of consciousness, rash, abnormal bruising or bleeding, imbalance, focal or generalized weakness, numbness or tingling in left arm or bilateral legs, change in generalized arthralgias or myalgias, back or neck pain, or night sweats. The review of systems is otherwise negative other than for that already noted above, and at least 10 systems have been reviewed. Physical Exam Physical Exam: The patient is awake, alert and oriented 3, well developed and well nourished, normocephalic and atraumatic, lying in bed and in no acute distress. HEENT--PERRL, EOMI, mucous membranes and oropharynx mildly dry. Neck--supple. No JVD. No bruits. Thyroid normal, trachea midline, no adenopathy. Heart--normal S1 and S2. No murmurs, rubs or gallops. Lungs--clear bilaterally, no respiratory distress, no accessory muscle use. Abdomen--normal bowel sounds and soft. Nontender. Nondistended, no hernias or masses, no organomegaly. Extremities--no cyanosis or clubbing. No edema. There are good distal pulses b/l. Dermatologic--normal skin turgor, normal color, no abnormal lymph nodes, no rash. Neurologic--cranial nerves II through XII grossly intact. Quick Sketch Artist strength equal bilaterally. Normal sensation bilaterally Rheumatologic--normal range of motion. Psychiatric--normal affect. Results & Data Results & Data Vital Signs (Past 12 Hours) Vital Signs Temp Pulse Pulse Resp BP BP Pulse Ox 07/28/25 19:30 179/93 H 07/28/25 19:30 179/93 H 07/28/25 19:30 179/93 H 07/28/25 19:30 179/93 H 07/28/25 19:30 179/93 H 07/28/25 19:30 75 21 07/28/25 19:21 79 26 H 95 07/28/25 19:15 200/96 H 07/28/25 19:15 200/96 H 07/28/25 19:15 200/96 H 07/28/25 19:15 200/96 H 07/28/25 19:15 200/96 H 07/28/25 19:15 81 18 97 07/28/25 19:12 85 14 98 07/28/25 19:11 79 170/84 H 07/28/25 19:00 170/84 H 07/28/25 19:00 170/84 H 07/28/25 19:00 170/84 H 07/28/25 19:00 170/84 H 07/28/25 19:00 170/84 H 07/28/25 19:00 170/84 H 07/28/25 19:00 170/84 H 07/28/25 19:00 170/84 H 07/28/25 19:00 80 17 97 07/28/25 18:58 160/89 H 07/28/25 18:58 160/89 H 07/28/25 18:58 160/89 H 07/28/25 18:47 89 199/99 H 07/28/25 18:45 85 15 97 07/28/25 18:45 199/99 H 07/28/25 18:45 199/99 H 07/28/25 18:45 199/99 H 07/28/25 18:45 199/99 H 07/28/25 18:45 199/99 H 07/28/25 18:42 83 21 97 07/28/25 18:41 82 18 170/84 H 96 07/28/25 18:31 184/108 H 07/28/25 18:31 184/108 H 07/28/25 18:31 184/108 H 07/28/25 18:31 184/108 H 07/28/25 18:31 184/108 H 07/28/25 18:30 92 H 15 98 07/28/25 18:23 84 07/28/25 18:21 86 18 97 07/28/25 18:15 152/85 H 07/28/25 18:15 88 18 184/108 H 98 07/28/25 16:24 36.8 C 111 H 20 187/119 H 98 O2 Del Method 07/28/25 19:30 07/28/25 19:30 07/28/25 19:30 07/28/25 19:30 07/28/25 19:30 07/28/25 19:30 07/28/25 19:21 07/28/25 19:15 07/28/25 19:15 07/28/25 19:15 07/28/25 19:15 07/28/25 19:15 07/28/25 19:15 07/28/25 19:12 07/28/25 19:11 07/28/25 19:00 07/28/25 19:00 07/28/25 19:00 07/28/25 19:00 07/28/25 19:00 07/28/25 19:00 07/28/25 19:00 07/28/25 19:00 07/28/25 19:00 07/28/25 18:58 07/28/25 18:58 07/28/25 18:58 07/28/25 18:47 07/28/25 18:45 07/28/25 18:45 07/28/25 18:45 07/28/25 18:45 07/28/25 18:45 07/28/25 18:45 07/28/25 18:42 07/28/25 18:41 Room Air 07/28/25 18:31 07/28/25 18:31 07/28/25 18:31 07/28/25 18:31 07/28/25 18:31 07/28/25 18:30 07/28/25 18:23 07/28/25 18:21 07/28/25 18:15 07/28/25 18:15 Room Air 07/28/25 16:24 Laboratory Results Laboratory Results WBC 7.08 K/ul (4.8-10.8) 07/28/25 17:09 RBC 4.53 M/uL (4.20-5.40) 07/28/25 17:09 Hgb 13.9 g/dL (12.0-16.0) 07/28/25 17:09 Hct 40.7 % (37.0-47.0) 07/28/25 17:09 MCV 89.8 fL (80.0-100.0) 07/28/25 17:09 MCH 30.7 pg (25.0-34.0) 07/28/25 17:09 MCHC 34.2 g/dL (32.0-36.0) 07/28/25 17:09 RDW Std Deviation 41.1 fL (36.4-46.3) 07/28/25 17:09 RDW Coeff of [place] 12.5 % (11.5-14.5) 07/28/25 17:09 Plt Count 373 K/uL (130-400) 07/28/25 17:09 MPV 9.0 fL (9.4-12.4) L 07/28/25 17:09 Immature Gran % (Auto) 0.6 % 07/28/25 17:09 Neut % (Auto) 63.0 % 07/28/25 17:09 Lymph % (Auto) 23.0 % 07/28/25 17:09 [place] % (Auto) 11.6 % 07/28/25 17:09 Eos % (Auto) 1.4 % 07/28/25 17:09 Baso % (Auto) 0.4 % 07/28/25 17:09 Neut # (Auto) 4.46 K/uL (1.40-6.50) 07/28/25 17:09 Lymph # (Auto) 1.63 K/uL (1.20-3.40) 07/28/25 17:09 [place] # (Auto) 0.82 K/uL (0.11-0.59) H 07/28/25 17:09 Eos # (Auto) 0.10 K/uL (0.00-0.50) 07/28/25 17:09 Baso # (Auto) 0.03 K/uL (0.00-0.20) 07/28/25 17:09 Immature Gran # (Auto) 0.04 K/uL (0.01-0.20) 07/28/25 17:09 PT 10.3 Seconds (9.0-12.0) 07/28/25 17:09 INR 1.0 (0.9-1.1) 07/28/25 17:09 APTT 29 Seconds (21-31) 07/28/25 17:09 PTT Ratio 1.1 07/28/25 17:09 Sodium 137 mmol/L (136-145) 07/28/25 17:09 Potassium 3.8 mmol/L (3.5-5.1) 07/28/25 17:09 Chloride 103 mmol/L (98-107) 07/28/25 17:09 Carbon Dioxide 25 mmol/L (21-32) 07/28/25 17:09 Anion Gap 9 (3-11) 07/28/25 17:09 BUN 11 mg/dl (6-23) 07/28/25 17:09 Creatinine 0.86 mg/dl (0.6-1.2) 07/28/25 17:09 Est Cr Clr Drug Dosing 76.9 ml/min 07/28/25 17:09 eGFR 81.23 07/28/25 17:09 BUN/Creatinine Ratio 12.8 (10-20) 07/28/25 17:09 Glucose 105 mg/dl (70-99(Fasting)) H 07/28/25 17:09 POC Glucose 108 mg/dl (70-99) H 07/28/25 19:02 Estimat Average Glucose 103 mg/dl 07/28/25 17:09 Hemoglobin A1c 5.2 % (4.5-5.6) 07/28/25 17:09 Calcium 9.8 mg/dl (8.6-10.3) 07/28/25 17:09 Magnesium 2.1 mg/dl (1.7-2.4) 07/28/25 17:09 Total Bilirubin 0.5 mg/dl (0.2-1.0) 07/28/25 17:09 AST 20 U/L (13-39) 07/28/25 17:09 ALT 22 U/L (7-52) 07/28/25 17:09 Alkaline Phosphatase 74 U/L (34-104) 07/28/25 17:09 Troponin I High Sens 3.8 pg/ml (0-14) 07/28/25 17:09 Total Protein 7.7 gm/dl (6.0-8.3) 07/28/25 17:09 Albumin 4.9 gm/dl (3.4-5.0) 07/28/25 17:09 Globulin 2.8 gm/dl (2.5-4.0) 07/28/25 17:09 Albumin/Globulin Ratio 1.8 (0.9-2) 07/28/25 17:09 Triglycerides 99 mg/dl (0-150) 07/28/25 17:09 Cholesterol 278 mg/dl (0-200) H 07/28/25 17:09 LDL Cholesterol, Calc 171 mg/dl 07/28/25 17:09 VLDL Cholesterol, Calc 20 mg/dl (0-30) 07/28/25 17:09 HDL Cholesterol 87 mg/dl 07/28/25 17:09 Cholesterol/HDL Ratio 3.2 (0-5) 07/28/25 17:09 TSH 1.768 uIu/ml (0.300-4.500) 07/28/25 17:09 Urine Color Yellow 07/28/25 Unknown Urine Appearance Clear (Clear) 07/28/25 Unknown Urine pH 5.5 (4.5-7.5) 07/28/25 Unknown Ur Specific [place] 1.007 (1.000-1.030) 07/28/25 Unknown Urine Protein Negative (Negative) 07/28/25 Unknown Urine Glucose (UA) Negative (Negative) 07/28/25 Unknown Urine Ketones Negative (Negative) 07/28/25 Unknown Urine Blood Negative (Negative) 07/28/25 Unknown Urine Nitrite Negative (Negative) 07/28/25 Unknown Urine Bilirubin Negative (Negative) 07/28/25 Unknown Urine Urobilinogen Negative (Negative) 07/28/25 Unknown Ur Leukocyte Esterase Negative (Negative) 07/28/25 Unknown Urine Comment 07/28/[address] 07/28/25 18:41 CT HEAD: HISTORY: Weakness TECHNIQUE: Noncontrast CT examination of the head is performed. Coronal and sagittal reformats were created. COMPARISON: None "back FINDINGS: There is no evidence of intracranial hemorrhage, focal mass effect or midline shift. No fluid collection is identified. The ventricular system is midline and symmetric. No evidence of acute major vascular territory infarction. No calvarial fracture is identified. The paranasal sinuses and mastoids are well aerated. IMPRESSION: No acute intracranial process identified. ASPECT SCORE 10/10 Notification to clinician of alert: [facility] was notified about above findings by phone on July 28, 2025 at 7:15 PM by Jonn Bay MD. Electronically signed by Jonn Bay 07-28-2025 7:35 PM Head CTA 07/28/25 18:41 HISTORY: Stroke TECHNIQUE: CT angiography of the head and the neck was performed. Coronal and sagittal reformats were created. IV CONTRAST: 100 mL of OMNIPAQUE 300 COMPARISON: FINDINGS: CTA HEAD: Stenotic/occlusive disease: None Aneurysm: None Vascular malformation: None CTA NECK: Right carotid: No hemodynamically significant stenosis. Left carotid: No hemodynamically significant stenosis. Vertebrobasilar system: No hemodynamically significant stenosis. Aortic arch and subclavian arteries: No hemodynamically significant stenosis. Nonvascular structures: Unremarkable. Stenosis ranges are derived using NASCET criteria. IMPRESSION: No large vessel occlusion or hemodynamically significant stenosis. Notification to clinician of alert: [facility] was notified about above findings by phone on July 28, 2025 at 7:15 PM by oJnn Bay MD. Electronically signed by Jonn Bay 07-28-2025 7:35 PM Neck CTA 07/28/25 18:41 HISTORY: Stroke TECHNIQUE: CT angiography of the head and the neck was performed. Coronal and sagittal reformats were created. IV CONTRAST: 100 mL of OMNIPAQUE 300 COMPARISON: FINDINGS: CTA HEAD: Stenotic/occlusive disease: None Aneurysm: None Vascular malformation: None CTA NECK: Right carotid: No hemodynamically significant stenosis. Left carotid: No hemodynamically significant stenosis. Vertebrobasilar system: No hemodynamically significant stenosis. Aortic arch and subclavian arteries: No hemodynamically significant stenosis. Nonvascular structures: Unremarkable. Stenosis ranges are derived using NASCET criteria. IMPRESSION: No large vessel occlusion or hemodynamically significant stenosis. Notification to clinician of alert: [facility] was notified about above findings by phone on July 28, 2025 at 7:15 PM by Jonn Bay MD. Electronically signed by Jonn Bay 07-28-2025 7:35 PM Code Status & VTE Plan Code Status Full code VTE Prophylaxis Plan VTE Prophylaxis will be ordered: Yes PG Care Time/CCT Total # of Minutes Spent Total Time Spent with Patient: Total time spent is greater than 50% in coordination of care (as documented) at patient's floor/unit and/or counseling patient: Coding Level of Care Code 75966 INT INP/OBS CARE 3/75MIN Diagnoses Arm paresthesia, right R20.2 Hypertension I10 Anxiety disorder F41.9 Fibromyalgia M79.7
[2025-07-28] MEDS: LACTATED RINGER'S 1,000 ML IV SCH (20:21)
--- NOTE | 2025-07-28 22:23 | Magnetic Resonance Report ---
Exam(s): MRI HEAD Without Contrast EXAM: MR Head Without Intravenous Contrast CLINICAL HISTORY: Reason for exam: Right arm numbness, stroke alert. TECHNIQUE: Magnetic resonance images of the head/brain without intravenous contrast in multiple planes. COMPARISON: Head CT from 07/28/2025 at 6:47 p.m. FINDINGS: Brain: 6 mm ill-defined area of T2 hyperintensity in the left frontal lobe deep white matter is nonspecific. Mild cerebral atrophy and trace amount of periventricular white matter T2 hyperintensity consistent with early chronic small vessel disease. No areas of diffusion restriction are seen to indicate acute stroke. No intracranial hemorrhage is identified. Ventricles: Unremarkable. No ventriculomegaly. Bones/joints: Unremarkable. No acute fracture. Sinuses: Unremarkable as visualized. No acute sinusitis. Mastoid air cells: Unremarkable as visualized. No mastoid effusion. Orbits: Unremarkable as visualized. IMPRESSION: 1. 6 mm ill-defined area of T2 hyperintensity in the left frontal lobe deep white matter is nonspecific. Differential considerations include chronic small vessel disease versus demyelinating lesion or old small vessel infarct. 2. Mild cerebral atrophy and trace amount of periventricular white matter T2 hyperintensity consistent with early chronic small vessel disease. No areas of diffusion restriction are seen to indicate acute stroke. Electronically signed by: Jah Solis MD 07/28/25 22:22 PM
[2025-07-28] MEDS ORDERED: ACETAMINOPHEN 325 MG TAB PO PRN (22:31)
[2025-07-28] MEDS ORDERED: PHARMACIST DISCHARGE MED REC CONSULT PRN (22:31)
[2025-07-28] MEDS ORDERED: CLOBETASOL PROPIONATE 0.05% OINT 15 GM TUBE EXT PRN (22:31)
[2025-07-28] MEDS ORDERED: ONDANSETRON 4 MG OD TAB PO PRN (22:57)
[2025-07-28] MEDS ORDERED: FLUTICASONE PROPIONATE NA SPR 16 GM BTL PRN (22:59)
[2025-07-29 04:55] LABS: Hematocrit (blood only) 36.9 % (37.0-47.0); Hemoglobin 12.6 g/dL (12.0-16.0); Immature Granulocytes # (auto) 0.02 K/uL (0.01-0.20); Immature Granulocytes % (auto) 0.3 %; Mean Corpuscular Hemoglobin 30.8 pg (25.0-34.0); Mean Corpuscular Volume 90.2 fL (80.0-100.0); Platelet Count 332 K/uL (130-400); RDW Standard Deviation 41.1 fL (36.4-46.3); Red Blood Count 4.09 M/uL (4.20-5.40); White Blood Count 6.99 K/ul (4.8-10.8)
[2025-07-29 05:11] LABS: Alanine Aminotransferase 18.0 U/L (7-52); Albumin Globulin Ratio 1.7 (0.9-2); Albumin Level 4.0 gm/dl (3.4-5.0); Alkaline Phosphatase 59.0 U/L (34-104); Anion Gap 8.0 (3-11); Bilirubin,Total 0.6 mg/dl (0.2-1.0); Blood Urea Nitrogen 8.0 mg/dl (6-23); Calcium 9.1 mg/dl (8.6-10.3); Carbon Dioxide 26.0 mmol/L (21-32); Chloride 105.0 mmol/L (98-107); Creatinine Clr Calc Pharmacy 87.0 ml/min; Globulin 2.3 gm/dl (2.5-4.0); Glucose 92.0 mg/dl (70-99(Fasting)); Magnesium 2.2 mg/dl (1.7-2.4); Potassium 3.6 mmol/L (3.5-5.1); Sodium 139.0 mmol/L (136-145); Total Protein 6.3 gm/dl (6.0-8.3)
[2025-07-29 05:22] VITALS: TEMP 97.7
[2025-07-29] MEDS: OXYBUTYNIN CHLORIDE XL 5 MG TABCR PO SCH (09:00)
[2025-07-29] MEDS: CYANOCOBALAMIN (B-12) 500 MCG TABLET PO SCH (09:01)
[2025-07-29] MEDS: ASPIRIN 81 MG ECTAB PO SCH (09:02)
[2025-07-29] MEDS: NICOTINE 14 MG/24 HR PATCH TD SCH (09:02)
[2025-07-29] MEDS: REMOVE NICODERM PATCH SCH (09:04)
--- NOTE | 2025-07-29 11:44 | XCELERA ---
[id number]
[2025-07-29 12:23] VITALS: RESP 21; O2SAT 98
[2025-07-29] MEDS: INFLUENZA VACC TS2025-26(6m+)/PF (IIV3) 0.5mL Syr IM ONE (12:30)
--- NOTE | 2025-07-29 13:36 | Discharge Summary ---
Discharge Summary Date of Service July 29, 2025 Principal Dx & Hospital Course #1 = Principal Diagnosis (1) Arm paresthesia, right: (2) Hypertension: (3) Anxiety disorder: (4) Fibromyalgia: (5) TIA (transient ischemic attack): Plan Reason for Admit: transient right arm dysesthesia 54-year-old woman admitted with TIA. Reports significant reduction in right arm and hand numbness compared to the previous day. Numbness was circumferential, extending from hand to elbow. No rest or elbow pain, neck discomfort, or altered shoulder sensation. No history of TIA, not on aspirin therapy. Concerned about statin side effects, particularly muscle pain due to fibromyalgia and diabetes risk. Previously on red yeast rice, recently discontinued. Observed upward trend in home blood pressure readings. Not on antihypertensive medication. - Labs: - LDL: 171 - Hemoglobin A1c: 5.2 - CBC: Normal - CMP: Normal - TSH: Normal - Imaging: - Brain MRI: Negative for infarct, early small vessel disease - CTA head and neck: Negative for stenoses Echocardiogramnormal LV EF 55-60% mild concentric LVH no regional wall motion abnormalities normal RV size and function no significant valvular pathology negative bubble study, otherwise unremarkable # Transient Ischemic Attack (TIA) - Symptoms do not align with peripheral nerve issue or radicular cervical pattern - Circumferential numbness in right hand, wrist, and up to elbow suggests TIA. - Brain MRI negative for infarct, early small vessel disease. - CTA head and neck negative for stenoses. - Echocardiogram unremarkable and negative bubble study - Treat with aspirin and Plavix for 21 days, then continue aspirin alone. - LDL is elevated at 171 for above goal, patient agreeable to start statin. - Discussed risks of myalgia, statin intolerance, and small increased diabetes risk, emphasizing benefits in preventing stroke and cardiovascular diseases. # Elevated blood pressure - Recent upward trend in blood pressure. Mild LVH on echo - Initiate low dose losartan. # Follow-up - Follow up with primary care in 2 weeks. Admission HPI Per Admitting Provider The patient is a 55-year-old female with a past medical history including hypertension, sinusitis, GERD, B12 deficiency, IBS-C, fibromyalgia, psoriasis, hyperlipidemia, uterine leiomyoma, and anxiety disorder. She reports at about 430 this afternoon she developed some right hand to elbow numbness, without associated weakness, and became concerned and presented to the ED for assessment. She was evaluated as a stroke alert, which telestroke neurology reporting that she started that she should be admitted to the hospital with stroke alert follow-up. CT scan of head, CTA head and neck were all negative. CBC with differential chemistry profile were essentially normal. Urinalysis was negative. From the ED patient received normal saline 125 ml, and labetalol 5 mg IV x 2. She was then referred for evaluation for admission to [facility]. Discharge Exam Awake alert oriented x 4 face symmetric PERRL EOMI shoulder shrug normal bilateral upper extremity strength is 5 out of 5 including detailed exam of right hand and wrist. Sensation intact to light touch face arms and legs Heart regular no murmurs rubs or gallops lungs clear to auscultation bilaterally abdomen nondistended lower extremities warm and well-perfused without edema Discharge Plan Discharge Items Reason For Visit: RIGHT ARM NUMBNESS, STROKE ALERT Condition on Discharge: Fair Follow-up/Referrals: Pro,Varun Del Real MD [Primary Care Provider] - Stand-Alone Forms: My [facility], Medications to Prevent Stroke Medications and DC Order Prescriptions: No Action mometasone 50 mcg/actuation spray,non-aerosol 1 spray INTNAS DAILY PRN (Reason: Allergy Symptoms) Qty: 17 3RF Rx Instructions: Use 1 to 2 sprays in each nostril daily. mecobalamin (vitamin B12) 1,000 mcg tablet,chewable 1,000 mcg PO DAILY Qty: 30 0RF clobetasol 0.05 % ointment 1 applic topical DAILY PRN (Reason: Psoriasis ) Qty: 30 0RF Rx Instructions: to use for no more than two weeks at at time solifenacin [Vesicare] 5 mg tablet 5 mg PO QAM Qty: 90 3RF pantoprazole [Protonix] 40 mg tablet,delayed release (DR/EC) 40 mg PO DAILY Qty: 90 3RF bupropion HCl 300 mg tablet extended release 24 hr 300 mg PO QAM Qty: 90 3RF valacyclovir 1 gram tablet See Rx Instructions .ROUTE .COMPLEX PRN (Reason: cold sores) Qty: 30 0RF Dose Instruction: TAKE 2 TABLETS TWICE A DAY FOR 1 DAY FOR TREATMENT OF COLD SORES. Rx Instructions: TAKE 2 TABLETS TWICE A DAY FOR 1 DAY FOR TREATMENT OF COLD SORES. PRN; red yeast rice 600 mg capsule 600 mg PO DAILY Rx Instructions: give with meal/snack ondansetron HCl 4 mg tablet 4 mg PO Q8H PRN (Reason: nausea and vomiting) Qty: 30 0RF meclizine 25 mg tablet 25 mg PO BID PRN (Reason: dizziness) Qty: 20 0RF Medical Thc 1 inh inhalation UD PRN (Reason: Anxiety) Admission Data Admit Date/Time: 07/28/25 20:05 Attending Provider: Fabiola Razo Admit Provider: Rohit Song Primary Care Provider: Varun Vicente Other Providers: Rohit Song Hospital Stay Data Consultations 07/28/25 19:38 ED Decision to Admit Stat Diagnostic Imagining Performed 07/28/25 18:41 CT angio head w con Stat CT angio neck with con Stat CT head/brain wo con Stat 07/28/25 19:21 MRI Brain [MR brain wo con] Stat Total Time Total Time Spent Total Time Spent (In Minutes): I personally spent: 40 minutes today on clinical care activities including: reviewing chart notes and vital signs reviewing labs reviewing studies examining and counseling the patient writing orders writing prescriptions, discharge instructions documentation Coding Level of Care Code 58404 INP/OBS DISCH >30 MIN Diagnoses Arm paresthesia, right R20.2 Hypertension I10 Anxiety disorder F41.9 Fibromyalgia M79.7 TIA (transient ischemic attack) G45.9
[2025-07-29] MEDS ORDERED: STROKE PATIENT DISCHARGE STA (13:42)
--- NOTE | 2025-07-29 13:53 | Pharmacy Report ---
- Date of Service July 29, 2025 - Pharmacy CVA/TIA Medication Review Medications to Prevent Stroke handout has been added to the patients discharge packet. Antiplatelet(s) * Aspirin 81mg + Clopidogrel 75mg x 21 days, then Aspirin alone Cholesterol * rosuvastatin 5 mg daily * High intensity statin deferred due to patient concerned about statin side effects, particularly muscle pain due to fibromyalgia, recently discontinued red yeast rice supplement DVT Prophylaxis * SCD knee Therapeutic Anticoagulation * No history of Afib/Aflutter noted Type 2 Diabetes * Patient does not have T2DM
[2025-07-29 14:10] VITALS: BP 163/87; PULSE 75
--- NOTE | 2025-07-29 21:51 | Electrocardiogram Report ---
Test Reason : Blood Pressure : */* mmHG Vent. Rate : 84 BPM Atrial Rate : 84 BPM P-R Int : 142 ms QRS Dur : 96 ms QT Int : 382 ms P-R-T Axes : 38 -4 14 degrees QTcB Int : 451 ms Normal sinus rhythm Incomplete right bundle branch block Minimal voltage criteria for LVH, may be normal variant ( R in aVL ) Borderline ECG When compared with ECG of 15-Jul-2024 15:31, No significant change was found Confirmed by Woo Allen ([id number]) on 07/29/2025 9:51:29 PM Referred By: Confirmed By: Woo Allen
--- NOTE | 2025-07-29 21:52 | Electrocardiogram Report ---
Test Reason : Blood Pressure : */* mmHG Vent. Rate : 68 BPM Atrial Rate : 68 BPM P-R Int : 134 ms QRS Dur : 102 ms QT Int : 436 ms P-R-T Axes : 38 42 45 degrees QTcB Int : 463 ms Normal sinus rhythm Nonspecific T wave abnormality When compared with ECG of 28-Jul-2025 17:01, T wave inversion now evident in Anterior leads Confirmed by Woo Allen ([id number]) on 07/29/2025 9:52:05 PM Referred By: REFERRED SELF Confirmed By: Woo Allen
--- NOTE | 2025-07-30 12:35 | Pharmacy Report ---
Pharmacist Stroke Counseling - Date of Service July 30, 2025 - Scope: Pharmacy has been consulted to provide medication discharge counseling for this patient admitted with transient ischemic attack as per the Pharmacist Discharge Counseling for Stroke Patients Protocol. - Medications on Discharge: Home Medications Medication Instructions Recorded Confirmed Medical Thc 1 inh inhalation UD PRN Anxiety 06/20/22 07/30/25 New Rx's Medication Instructions Recorded mometasone 50 mcg/actuation nasal 1 spray intranasal DAILY PRN 05/10/23 spray Allergy Symptoms #17 grams mecobalamin (vitamin B12) 1,000 1,000 mcg PO DAILY #30 tabs 02/29/24 mcg chewable tablet clobetasol 0.05 % topical ointment 1 applic topical DAILY PRN 06/21/24 Psoriasis #30 grams solifenacin 5 mg tablet (Vesicare) 5 mg PO QAM #90 tabs 08/19/24 pantoprazole 40 mg tablet,delayed 40 mg PO DAILY #90 tabs 09/25/24 release (Protonix) bupropion HCl 300 mg 24 hr tablet, 300 mg PO QAM #90 tabs 10/16/24 extended release meclizine 25 mg tablet 25 mg PO BID PRN dizziness #20 tabs 02/13/25 ondansetron HCl 4 mg tablet 4 mg PO Q8H PRN nausea and 02/13/25 vomiting #30 tabs valacyclovir 1 gram tablet See Rx Instructions .Route 05/23/25 .COMPLEX PRN cold sores #30 tabs aspirin 81 mg tablet,delayed 81 mg PO QAM #0 tabs 07/29/25 release clopidogrel 75 mg tablet (Plavix) 75 mg PO DAILY #21 tabs 07/29/25 losartan 25 mg tablet 25 mg PO DAILY #30 tabs 07/29/25 rosuvastatin 5 mg tablet 5 mg PO DAILY #30 tabs 07/29/25 - Action: The above medications, specifically ones for stroke treatment/prophylaxis, have been reviewed in detail with the patient after discharge. This includes indication, common adverse reactions, drug interactions, and medication administration. Medication counseling has been employed using the teach-back method to ensure understanding. - Outcome: The patient has demonstrated understanding of the medications. Additional comments: Called Kathryn and spoke to her regarding her new medications. Discussed that she was on a lower dose of rosuvastatin due to concerns for muscle aches. Reviewed bleeding side effects of clopidogrel and aspirin. Kathryn asked about the losartan and we discussed the risk of hyperkalemia. Her recent potassium when she was admitted was 3.6 at lower end of typical range so may have a modest increase. Thank you for allowing pharmacy to be involved in the care of this patient. Please call [phone] with any additional questions
== END 2025-07-29 14:48 | disposition home or self-care (01) ==
LOC: EDINP 16:14 → ED 16:14 → SUATTDRO 20:05 → 1E 22:34